=== PATIENT | female | born 1950 | race Caucasian/White ===

== ENCOUNTER 2025-01-07 07:38 | Outpatient (CLI) | payer MEDICARE, SELFPAY ==
--- NOTE | 2025-01-07 09:01 | P.ANES_ITS ---
Anesthesia Charges Start Date/Time Anesthesia Start Date: 01/07/25 Anesthesia Start Time: 08:46 Stop Date/Time Anesthesia Stop Date: 01/07/25 Anesthesia Stop Time: 08:59 Summary Extremes of Age - Over 70 or under 1: BUFF WHEEL FABRICATOR Coding CPT Codes CPT Codes: ANES UPR GI NDSC PX NOS - 23314 ([id number]) P3 - PATIENT W/SEVERE SYS DISEASE, QX - BUFF WHEEL FABRICATOR SVC W/ MD MED DIRECTION, QK - EKG MANAGER 2-4 CNCRNT ANES PROC Additional Codes: Summary - Extremes of Age - Over 70 or under 1: BUFF WHEEL FABRICATOR ([id number])
--- NOTE | 2025-01-07 09:01 | W.ANESCHARGE ---
Anesthesia Charges Start Date/Time Anesthesia Start Date: 01/07/25 Anesthesia Start Time: 08:46 Stop Date/Time Anesthesia Stop Date: 01/07/25 Anesthesia Stop Time: 08:59 Summary Extremes of Age - Over 70 or under 1: JOINTER MACHINE Coding CPT Codes CPT Codes: ANES UPR GI NDSC PX NOS - 52137 ([id number]) P3 - PATIENT W/SEVERE SYS DISEASE, QX - JOINTER MACHINE SVC W/ MD MED DIRECTION, QK - CUSTOMER RELATIONSHIP SPECIALIST 2-4 CNCRNT ANES PROC Additional Codes: Summary - Extremes of Age - Over 70 or under 1: JOINTER MACHINE ([id number])
--- NOTE | 2025-01-07 09:34 | P.ANES_ITS ---
Anesthesia Charges Start Date/Time Anesthesia Start Date: 01/07/25 Anesthesia Start Time: 08:46 Stop Date/Time Anesthesia Stop Date: 01/07/25 Anesthesia Stop Time: 08:59 Summary Extremes of Age - Over 70 or under 1: MDA Coding CPT Codes CPT Codes: ANES UPR GI NDSC PX NOS - 37376 ([id number]) QK - PRODUCT MARKETING SPECIALIST 2-4 CNCRNT ANES PROC, QX - MACHINE BUILDER SVC W/ MD MED DIRECTION, P3 - PATIENT W/SEVERE SYS DISEASE Additional Codes: Summary - Extremes of Age - Over 70 or under 1: MDA ([id number])
== END 2025-01-07 07:39 | disposition home or self-care (01) ==
LOC: OP CLINIC 07:42
PROVIDERS: PCP Family Medicine; Visit Provider Surgery
DX: K44.9 Diaphragmatic hernia without obstruction or gangrene (principal); R10.9 Unspecified abdominal pain
CPT/HCPCS: 00731; 43239; 99100; J2704; J3010

== ENCOUNTER 2025-02-01 10:00 | Outpatient (CLI) | payer MEDICARE, SELFPAY ==
--- NOTE | 2025-02-01 10:15 | CRLHL7_ITS ---
For Patients: As a result of the Century Cures Act, medical imaging exams and procedure reports are released immediately into your electronic medical record. You may view this report before your referring provider. If you have questions, please contact your health care provider. Technique: Double-contrast esophagram performed after the uneventful administration of effervescent crystals and thick barium followed by thin barium. Fluoroscopy time 64 seconds. Indication: Hiatal hernia with GERD Comparison: None. Findings: Postop changes Michael fundoplication. A hernia develops toward the end of the examination measuring 3.5 cm. Some spontaneous reflux noted. Normal passage of a barium tablet through the GE junction. No ulcer. Some tertiary contractions of the distal esophagus noted with delayed transit. Impression: 3.5 cm hiatal hernia. Mild delayed esophageal transit and mild distal esophageal tertiary contractions. No stricture. No achalasia. Dictated by Bhavin Arguelles MD @ 02/01/2025 11:37:26 AM (Electronically Signed)
--- OUTSIDE RECORDS SUMMARY | 2025-02-02 00:25 | XMS_ITS | Clinical Summary ---
Author Organization [facility] Address [address] [place] [address] Care Team Providers Care Asbestos Microscopist Name Role Phone Elsewhere, Pcp Primary Care Provider Unavailabl e Source Comments Patient records contain information from all sites at [facility]. For routine questions regarding patient records, call [phone] during business hours, M-F 8:00 AM - 5:00 PM Central Time. Record requests for emergency care only can be directed to [phone] at any time.[facility] Allergies Active Allergy Reactions Criticality Noted Date Comments Lisinopril Cough 06/11/2009 Cough Penicillins Hives (Reselect Reaction),Rash 08/08 Medications * This document contains information received from the source organization and may not represent a complete record from that organization. multivitamin tablet Take by mouth. 06/01/2007 Active amLODIPine (NORVASC) 10 mg tablet Take 1 tablet (10 mg total) by mouth daily. 90 tablet 3 08/03/2019 Active albuterol (PROVENTIL HFA,VENTOLIN HFA) 90 mcg/actuation inhaler Inhale 2 puffs every 4 (four) hours as needed for wheezing. 18 g 08/03/2019 Active ascorbic acid, vitamin C, (VITAMIN C) 500 mg tablet Take 500 mg by mouth daily. Active omega 1-hao-kys-fish oil 1,000 mg (120 mg-180 mg) capsule Take by mouth. Active melatonin 5 mg tablet Take 5 mg by mouth at bedtime as needed. Active calcium carbonate-vitam in D3 (Calcium 600 with Vitamin D3) 600 mg(1,500mg) -400 unit tablet,chewable Chew 1 tablet daily. Active losartan (COZAAR) 25 mg tablet Take 12.5 mg by mouth daily. Active hydroCHLOROthia zide (HYDRODIURIL) 25 mg tablet Take by mouth daily. 05/31/2022 Active triamcinolone (KENALOG) 0.1 % cream Apply topically. 10/25/2022 Active allopurinoL (ZYLOPRIM) 300 mg tablet Take 300 mg by mouth. 05/31/2022 Active albuterol 2.5 mg /3 mL nebulizer solution Inhale 2.5 mg every 4 (four) hours as needed. 12/02/2023 Active benzonatate (Tessalon) 200 mg capsule Take 1 capsule (200 mg total) by mouth 3 (three) times a day as needed for cough. 20 capsule 09/18/2024 Active Active Problems Problem Noted Date Diagnosed Date Gout 01/15/2020 Chronic Obstructive Pulmonary Disease 09/13/2019 Morbid Severe Obesity Due To Excess Calories Gastric Ulcer Unspecified As Acute Or Chronic Without Hemorrhage Or Perforation 09/19/2018 Overview (08/03/2019): EGD 09/2017 4 cm hiatal hernia with chucho erosion that may be the source of anemia Nicotine Dependence Unspecified 07/10/2013 Hypertension Essential Primary 07/07/2012 Polyp Colon Personal History, Unspecified Type 1 09/16/2010 Overview (08/03/2019): Colonoscopy 07/2011 normal repeat in 5 years Colonoscopy 09/2018 polyp, repeat in 5 years 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 03/10/2011 Immunizations Immunization Administration Dates Next Due HZV (ZOSTAVAX) 07/13/2010 Influenza TIV (IM) 04/28/2020, 8,04/15/2017,2014,06/08/2012 Influenza high dose QV(65 ye ars or older) (PF) 04/27/2021 Influenza, Injectable, Quadrivalent 05/21/2019 Influenza, Quadrivalent, Adj uvanted, Preservative Free 04/28/2020 Influenza, Seasonal, Injectable 06/08/2012 Influenza, Unspecified 05/08/2013 PCV13 07/31/2015 PPSV23 08/24/2016,07/07/2012 RZV (SHINGRIX) 08/28/2018, 9,08/08/2018,2017,06/08/2018 Td, (Adult) Unspecified 05/04/2006 Tdap 07/07/2012 influenza trivalent high dos e (HD)(PF) 04/15/2017,04/25/2016 influenza trivalent vaccine (6 months and older)(PF) 04/28/2020,05/03/2015 influenza vaccine quad (FLUZONE/FLUARIX) (6 months and older)(PF) 05/21/2019,07/12/2014 Social History Tobacco Use Types Packs/Day Years Used Date Smoking Tobacco: Some Days Cigarettes Passive Smoke Exposure: Current Smokeless Tobacco: Never Tobacco Cessation:Ready to Q uit: Not Asked; Counseling Given: Not Answered Comments:rare use Alcohol Use Standard Drinks/Week Comments Not Currently 0 (1 standard drink = 0.6 oz pur e alcohol) very rare Comments No Sex and Gender Information Value Date Recorded Sex Assigned at Not on file Legal Sex Female 4:47 PM UTILITY REPAIRER Gender Identity Not on file Sexual Orientation Not on file Last Filed Vital Signs Vital Sign Reading Time Taken Comments Blood Pressure 149/77 09/18/2024 10:40 AM UTILITY REPAIRER Pulse 81 09/18/2024 10:40 AM UTILITY REPAIRER Temperature 37.3 C (99.1 F) 09/18/2024 10:40 AM UTILITY REPAIRER Respiratory Rate 20 09/18/2024 10:40 AM UTILITY REPAIRER Oxygen Saturation 97% 09/18/2024 10:40 AM UTILITY REPAIRER Inhaled Oxygen Concentration - - Weight 138 kg (303 lb 11.2 oz) 09/18/2024 10:35 AM UTILITY REPAIRER Height 167.6 cm (5' 6) 09/18/2024 10:35 AM UTILITY REPAIRER Body Mass Index 49.02 09/18/2024 10:35 AM UTILITY REPAIRER Plan of Treatment Health Maintenance Due Date Last Done Comments CT Colonography 1950 Cologuard 1950 Hepatitis C Screening 1950 Tobacco Cessation counseling 1950 Colonoscopy 09/18/2023 09/18/2018 Colorectal Cancer Surveillance 09/18/2023 COVID-19 Vaccine ( season) 2024 07/15/2021, 11/07/2020, 10/10/2020 Office Visit for Blood Pressure Check / Re-check 06/17/2024 06/17/2023 Depression Screening (Annual PHQ-2) 08/08/2024 Fall Risk Screen (Annual) 08/08/2024 Mammogram 10/27/2024 10/28/2023, 10/07, 10/25/2022, Additional history exists RSV vaccine - (32-36 weeks) or 60+ years (1 - 1-dose 75+ series) 2024 Creatinine Level (Kidney Function Test) 03/21/2025 03/21/2024, 10/28/2023, 03/09/2023, Additional history exists Potassium Level 03/21/2025 03/21/2024, 10/07, 08/17/2023, Additional history exists Sodium Level 03/21/2025 03/21/2024, 10/07, 10/25/2022, Additional history exists Fasting Glucose for Diabetes Screening 03/21/2027 03/21/2024, 10/28/2023, 10/25/2022, Additional history exists DTaP,Tdap,and Td Vaccines (3 - Td or Tdap) 06/22/2032 06/22/2022, 07/07/2012, 05/04/2006 Zoster Vaccines Completed 08/28/2018, 08/09, 08/08/2018, Additional history exists Bone Density Scan (Osteoporosis Screen) Discontinued 10/14/2020 Pneumococcal vaccine (50+ years) Completed 10/25/2022, 08/24/2016, 07/31/2015, Additional history exists Influenza Vaccine Completed 05/01/2024, , 04/26/2022, Additional history exists IPV Vaccines Aged Out No longer eligi ble based on patient's age to complete this topic Procedures Procedure Name Priority Date/Time Associated Diagnosis Comments COMPREHENSIVE METABOLIC PANEL, S/P STAT 12/07/2021 12:50 PM CDT from Last 3 Months or Most Recently Relevant to Health Maintenance Results * (ABNORMAL) Comprehensive Metabolic Panel (12/07/2021 12:50 PM CDT) Potassium, P 3.9 3.6 - 5.2 mmol/L 12/07/2021 1:20 PM CDT NPRG Sodium, P 137 135 - 145 mmol/L 12/07/2021 1:20 PM CDT NPRG Chloride, P 103 98 - 107 mmol/L 12/07/2021 1:20 PM CDT NPRG Bicarbonate, P 23 22 - 29 mmol/L 12/07/2021 1:20 PM CDT NPRG Anion Gap, P 11 7 - 15 12/07/2021 1:20 PM CDT NPRG BUN (Blood Urea Nitrogen), P 22(H) 6 - 21 mg/dL 12/07/2021 1:20 PM CDT NPRG Creatinine 1.12(H) 0.59 - 1.04 mg/dL 12/07/2021 1:20 PM CDT NPRG eGFR-Black/ 57(L) >=60 mL/min/B SA 12/07/2021 1:20 PM CDT NPRG Comment: ----ADDITIONAL INFORMATION---- Estimated GFR calculated using the 2009 CKD_EPI creatinine equation. eGFR Non-Black/ 49(L) >=60 mL/min/B SA 12/07/2021 1:20 PM CDT NPRG Comment: ----ADDITIONAL INFORMATION---- Estimated GFR calculated using the 2009 CKD_EPI creatinine equation. Calcium, Total, P 11.1(H) 8.8 - 10.2 mg/dL 12/07/2021 1:20 PM CDT NPRG Glucose, P 127 70 - 140 mg/dL 12/07/2021 1:20 PM CDT NPRG Protein, Total, P 7.0 6.3 - 7.9 g/dL 12/07/2021 1:20 PM CDT NPRG Albumin, P 4.2 3.5 - 5.0 g/dL 12/07/2021 1:20 PM CDT NPRG Aspartate Aminotransferase (AST), P SEE COMMENT 8 - 43 U/L 12/07/2021 1:24 PM CDT NPRG Comment:Specimen markedly he molyzed. Alkaline Phosphatase, P 94 35 - 104 U/L 12/07/2021 1:20 PM CDT NPRG Alanine Aminotransferase (ALT), P 22 7 - 45 U/L 12/07/2021 1:20 PM CDT NPRG Bilirubin, Total, P 0.6 <=1.2 mg/dL 12/07/2021 1:20 PM CDT NPRG Blood (Blood, Venous) 12/07/2021 12:50 PM CDT 12/07/2021 1:02 PM CDT us Krystin Fuentes D.O. LAB BLOOD ADD-ON Final Result [facility] [address] [place] [address], [place] NPRG [facility] [address] [place] [address] from Last 3 Months or Most Recently Relevant to Health Maintenance Insurance [facility] Care Teams Asbestos Microscopist Relationship Specialty Start Date End Date Elsewhere, Pcp PCP - General Internal Medicine 12/07/21
--- OUTSIDE RECORDS SUMMARY | 2025-02-02 00:25 | XMS_ITS | Clinical Summary ---
Author Organization [id number] [facility] Address [address] [place] [id number] Care Team Providers Care Train Announcer Name Role Phone Juanjo Trevizo MD Primary Care Provider Baljit Scales MD Unavailable [phone] Allergies Active Allergy Reactions Criticality Noted Date Comments Lisinopril Cough 06/11/2009 Penicillins Hives Medications MULTIVITAMIN TAB Take 1 Tablet by mouth once daily. Contains 0.4 mg of Folic Acid. 0 06/01/20 07 Active VITAMIN C 500 MG TAB take 1 po daily 0 06/01/20 07 Active DIGITAL BP MONITOR CUFF Use to take BP at home as directed 1 0 06/19/20 08 Active omega-3 fatty acids-vitamin E (FISH OIL) 1,000 mg cap Take 1 Capsule by mouth once daily. 0 05/20/20 14 Active NebulizerIndicat ions:Airway obstruction Nebulizer, reuseable neb kit x 1, mask x 1, filters x 1. Freq: daily; Medication: Albuterol Length of need: 99 months 1 Device 04/28/20 18 Active cholecalciferol (VITAMIN D3) 1,000 unit capsule Take 2,000 units by mouth once daily. 0 05/03/20 22 Active triamcinolone (ARISTOCORT; KENALOG) 0.1 % creamIndications :Rash Apply topically to affected area(s) three times daily. Not to exceed two weeks without interruption per episode. 45 g 10/26/19 23 Active albuterol 0.083% (2.5 mg/3 mL) neb solutionIndicati ons:Bronchospasm Inhale 3 mL (2.5 mg) via a nebulizer every 4 hours if needed for Wheezing. 150 mL 2 12/02/19 24 Active albuterol HFA (PRO-AIR; VENTOLIN; PROVENTIL) 90 mcg/actuation inhalerIndicatio ns:COPD mixed type (HC) Inhale 1-2 Puffs by mouth every 4 hours if needed for Shortness of Breath 1st choice. 6.7 g 06/21/20 24 Active CPAPIndications: ALISON (obstructive sleep apnea) RESMED CPAP (E0601) machine for home use at pressure: 4-15cmw, Choice of mask (A7030 or A7034) w/full face cushion (A7031) x1/mo, nasal cushion (A7032) x2/mo, or nasal pillows (A7033) x 2/mo; Length of Need: 99 months; Frequency of use: Daily 1 Each 09/04/19 25 Active allopurinoL 300 mg tabletIndication s:Gout, unspecified cause, unspecified chronicity, unspecified site Take 1 Tablet (300 mg) by mouth once daily. 90 Tablet 3 10/30/19 25 Active amLODIPine 5 mg tabletIndication s:Hypertension, unspecified type Take 1 Tablet (5 mg) by mouth once daily. 90 Tablet 3 10/30/19 25 Active hydroCHLOROthiaz karson 25 mg tabletIndication s:Hypertension, unspecified type Take 1 Tablet (25 mg) by mouth once daily. 90 Tablet 3 10/30/19 25 Active losartan 100 mg tabletIndication s:Hypertension, unspecified type Take 1 Tablet (100 mg) by mouth once daily. 90 Tablet 3 10/30/19 25 Active cephalexin 500 mg capsuleIndicatio ns:Unspecified prophylactic or treatment measure TAKE 4 CAPSULES 1 HOUR BEFORE DENTAL APPOINTMENT 8 Capsule 1 11/15/19 25 Active omeprazole 20 mg tabletIndication s:Dyspepsia Take 1 Tablet (20 mg) by mouth once daily before a meal. 90 Tablet 3 01/23/20 25 Active omeprazole 20 mg tabletIndication s:Dyspepsia Take 1 Tablet (20 mg) by mouth once daily before a meal. 30 Tablet 12/12/19 25 025 Discontin ued(Reord er (E-cancel not sent)) omeprazole 20 mg tabletIndication s:Dyspepsia Take 1 Tablet (20 mg) by mouth once daily before a meal. 30 Tablet 01/08/20 25 025 Discontin ued(Reord er (E-cancel not sent)) Active Problems Problem Noted Date Diagnosed Date Bilateral lower extremity edema 07/18/2024 Hyperparathyroidism, unspecified 08/31/2023 Hiatal hernia 05/19/2022 Overview (06/16/2022): EGD 06/2022 Normal biopsies. Large hernia on EGD. Esophageal dilation to 51Fr Skin cancer 07/13/2021 Overview (09/28/2021): 07/08/2021, RIGHT SUPERIOR NASAL TIP, BCC, nodular type, 09/28/[address] Willson Gout 01/15/2020 COPD mixed type 09/13/2019 Destin ulcer 09/19/2018 Overview (09/19/2018): EGD 09/2017 4 cm hiatal hernia with destin erosion that may be the source of anemia Unspecified essential hypertension 07/07/2012 Personal history of colonic polyps 07/16/2011 Overview (09/19/2018): Colonoscopy 07/2011 normal repeat in 5 years Colonoscopy 09/2018 polyp, repeat in 5 years History of total knee arthroplasty 03/10/2011 Morbid obesity Impaired fasting glucose Dysphagia Gastroesophageal reflux disease Resolved Problems Problem Noted Date Diagnosed Date Resolved Date Tobacco use disorder 07/10/2013 021 Routine general medical exam ination at a health care facility 06/06/2008 07/10/2020 Overview (06/07/2008): Lipids - 06/03/07 - cholesterol - 159, LDL - 85, TG - 103 Dexa- none found mammo-06/02/07 Colon - 05/2006 - due 2010 Pap/pelvic -04/09/05 - nl Thyroid- 05/04/06 - 0.71 Hep B-none found Tetanus-05/04/06 Diabetic-no Elevated BP 07/07/2012 Encounters Date Type Department Care Team Description 01/24/2025 Telephone [facility] [address] [place] [address] 47 Juanjo Trevizo MD Questions (BARIUM Testing ) 01/23/2025 Orders Only [facility] [address] [place] [address] Jaki Castro MD <No scans attached> 01/22/2025 11:45 AM CDT Office Visit [facility] [address] [place] [address] Juanjo Trevizo MD Follow Up (Results from endoscopy ) 01/21/2025 Travel 01/15/2025 Orders Only [facility] [address] [place] [address] Jaki Castro MD 1 scan: (1-Ord) [facility], UPPER GI, 01/07/2025 01/10/2025 Telephone [facility] [address] [place] [address] Jaki Castro MD 01/10/2025 Telephone [facility] [address] [place] [address] Juanjo Trevizo MD Questions (test result ) 01/08/2025 Lab Requisition [facility] [phone] Jaki Castro MD 01/07/2025 Orders Only [facility] Scanner 1 scan: (1-Ord) [facility], UPPER GI, 01/07/2025 01/07/2025 Orders Only [facility] Scanner 1 scan: (1-Ord) [facility], UPPER GI , 01/07/2025 01/07/2025 Telephone [facility] [address] [place] [address] Juanjo Trevizo MD Medication Management (Omeprazole ) 12/26/2024 11:15 AM CDT Office Visit [address] [address] Jaki Castro MD Consult (Gallbladder, referred by Dr Trevizo ) 12/25/2024 10:30 AM CDT Office Visit [address] [place] [address] Juanjo Trevizo MD Follow Up (Medication change and test results) 12/25/2024 Travel 12/23/2024 Travel 12/17/2024 10:30 AM CDT Ancillary Procedure [facility] [address] [facility] [address] [place] [address] 12/17/2024 Travel 12/12/2024 Travel 12/11/2024 11:45 AM CDT Office Visit [facility] [address] [place] [address] Juanjo Trevizo MD Diarrhea (Loose stools, nausea, 12/06/2024 - 12/09/2024, low abdomen discomfort) 12/10/2024 Travel 11/13/2024 Refill [facility] [address] [place] [address] Juanjo Trevizo MD Refill Request (Cephalexin) 11/13/2024 Telephone [facility] [address] [place] [address] Juanjo Trevizo MD Questions (Probiotics) 11/12/2024 Telephone [facility] [address] [place] [address] Juanjo Trevizo MD Form 11/12/2024 Telephone [facility] [address] [place] [address] Dedra Owens MD Form ([facility]) 11/05/2024 Orders Only [facility] [address] [place] [address] Juanjo Trevizo MD Lab 11/05/2024 Orders Only [facility] [address] [place] [address] Juanjo Trevizo MD <No scans attached> from Last 3 Months Immunizations Immunization Administration Dates Next Due COVID-19 vaccine (Moderna 10 0mcg/0.5mL) PF, MDV 11/07/2020,10/10/2020 Influenza Virus, Unspecified 05/08/2013 Influenza, High-dose Inactivated 04/15/2017,04/08 Influenza, High-dose Quadriv alent Inactivated 04/27/2021 Influenza, IIV3 (Age 6-35 mos) 04/28/2020,2014 Influenza, IIV3 (Age >=3 years) 04/28/2020,05/04,06/08/2012 Influenza, IIV4 05/21/2019,07/12/2014 Influenza, IIV4 (=>6mos) MDV 05/21/2019 Influenza, Inactivated AIIV4 (Age 65+ Years) Preserv Free 05/20/2023,04/26/2022 Influenza, Inactivated IIV3 (Age 65+ Years) Preserv Free 05/01/2024,05/03/2018,04/15/2017 Pneumococcal Conj 20-valent (Prevnar 20) 023 Pneumococcal Poly,23-Valent (Pneumovax) 08/24/19 17,07/07/2012 Pneumococcal conj 13-Valent (Prevnar 13) 015 TD, UNSPECIFIED 05/04/2006 Td (Age >=7 Years) 05/04/2006 Tdap 06/22/2022,07/07/2012 Zoster (Shingrix-RZV, recombinant) 08/28/2018,,06/16/2018 Zoster (Zostavax-ZVL, live) 07/13/2010 Family History Medical History Relation Name Comments Cancer-colon Brother 1 Cancer-prostate Brother 2 at 79 Arthritis Father Cancer-prostate Father Heart Disease Father 2000, of [place] age 81 Anesthesia Problem Neg. Cancer-breast No Family History Cancer-ovarian No Family History Relation Name Status Comments Brother 1 Brother 2 Alive Father Mother Neg. Social History Tobacco Use Types Packs/Day Years Used Date Smoking Tobacco: Former Cigarettes 0 04/24/1991 - 04/24/2022 Smokeless Tobacco: Never Tobacco Cessation:Counseling Given: No Passive Exposure Comments:2 cigarettes a month. Alcohol Use Standard Drinks/Week Comments Yes 0 (1 standard drink = 0.6 oz pur e alcohol) rare PHQ-2 Answer Date Recorded PHQ-2 TOTAL SCORE 0 10/29/2024 Social Connections Answer Date Recorded Do you often feel lonely or isolated from those around you? 0 10/24/2024 Financial Resource Strain Answer Date R ecorded Difficulty of Paying Living Expenses 3 10/24/2024 Difficulty of Paying Living Expenses Not on file 10/24/2024 Food Insecurity Answer Date Recorded Do you worry your food will run out before you are able to buy more? 1 10/24/2024 Transportation Needs Answer Date Record ed Does lack of transportation keep you from medica l appointments? 1 10/24/2024 Does lack of transportation keep you from work, meetings or getting things that you need? 1 10/24/2024 Housing Stability Answer Date Recorded What is your housing situation today? 1 10/24/2024 Utilities Answer Date Recorded Do you have trouble paying f or utilities (for example, heat, electricity, water, phone)? 1 10/24/2024 Comments No Sex and Gender Information Value Date Recorded Sex Assigned at Not on file Legal Sex Female 6:31 AM PEACE OFF[employer]ER Gender Identity Not on file Sexual Orientation Not on file Occupation Industry Job Start Date Job End Date Not on file Not on file Not on file Not on file Obstetrics History Para Term AB IAB SAB Ectopic Multiple Livin g Live Births 3 3 3 0 0 0 0 0 0 0 0 Date Outcome GA Total Labor Labor/2nd/3rd Weight Sex Type Anes PTL Yenny A1 A5 Name Clin Term Term Term Last Filed Vital Signs Vital Sign Reading Time Taken Comments Blood Pressure 128/79 01/22/2025 11:55 AM CDT Pulse 74 01/22/2025 11:55 AM CDT Temperature 36.3 C (97.3 F) 08/31/2023 11:44 AM PEACE OFF[employer]ER Respiratory Rate 18 08/31/2023 11:4 4 AM PEACE OFFICER Oxygen Saturation 97% 01/22/2025 11: 55 AM CDT Inhaled Oxygen Concentration - - Weight 139.3 kg (307 lb 3.2 oz) 025 11:55 AM CDT Height 164.2 cm (5' 4.65) 10/29/2024 1 0:06 AM CDT Body Mass Index 51.68 10/29/2024 10:06 AM CDT Plan of Treatment Health Maintenance Due Date Last Done Comments Colonoscopy through age 75 09/18/202309/18, 09/18/2018, 09/18/2018, Additional history exists COVID-19 vaccine series ( season) 2024 07/15/2021, 11/07/2020, 10/10/2020 RSV vaccine for adults or (1 - 1-dose 75+ series) 2024 BMI (ht and wt on same day) for age 18+ 10/29/2025 10/29/2024, 09/04/2024, 10/28/2023, Additional history exists Depression screening for age 12+ 10/29/2025 10/29/2024, 10/28/2023, 10/28/2023, Additional history exists Medicare Wellness for age 65+ 10/30/2025 10/29/2024, 10/28/2023, 10/25/2022, Additional history exists Fecal testing non-DNA (FIT,FOBT,iFOBT) for age 45-75 11/01/2025 11/01/2024, 11/01/2023, 09/15/2017, Additional history exists Lipids for age 45-75 10/27/2028 10/28/2023, 10/14/2020, 09/13/2019, Additional history exists Tetanus booster 06/22/2032 06/22/2022, 06/10, 05/04/2006, Additional history exists Hepatitis C screening for age 18-79 Completed 07/12/2014 Zoster (shingles) series for age 50+ Completed 08/28/2018, 08/08/2018, 06/16/2018, Additional history exists Tdap Completed 06/22/2022, 07/07/2012 Pneumococcal series for age 50+ Completed 10/25/2022, 08/24/2016, 07/31/2015, Additional history exists DEXA/DXA scan for age 65+ Completed 2022, 10/14/2020, 08/05/2015 Influenza Vaccine Completed 05/01/2024, , 04/26/2022, Additional history exists Hepatitis B series for 19+ Aged Out N o longer eligible based on patient's age to complete this topic Procedures Procedure Name Priority Date/Time Associated Diagnosis Comments AMB CONSULT TO GASTROENTEROLOGY Routine 01/28/2025 7:24 PM CDT Chronic GERD Early satiety LAB TRACKING EVENT Routine 01/07/2025 8:50 AM CDT PATH TISSUE EXAM Routine 01/07/2025 8:50 AM CDT ESOPHAGOGASTRODUODENOSCOPY Routine 01/07 12:00 AM CDT Gallstones SCAN-ENDOSCOPY 01/07/2025 12:00 AM CDT SCAN-ENDOSCOPY 01/07/2025 12:00 AM CDT US ABDOMEN LIMITED RUQ Routine 10:39 AM CDT Dyspepsia OCCULT BLOOD IFOBT STOOL Routine 025 12:00 PM CDT Screening for colon cancer LIPID PANEL W REFLEX MEASURE D LDL Routine 10/28/2023 10:38 AM CDT Lipid screening XR DXA BONE DENSITY 2 SITES AXIAL AND 1 SITE PERIPHERAL Routine 03/17/2023 11:00 AM CDT Hyperparathyroi dism (HC) SCAN-COLONOSCOPY 09/18/2018 12:00 AM PEACE OFFICER ANTI HCV Routine 07/12/2014 9:03 AM PEACE OFFICER Need for hepatitis C screening test from Last 3 Months or Most Recently Relevant to Health Maintenance Results * LAB TRACKING EVENT (01/07/2025 8:50 AM CDT) Other (Other) Client Collect / Unknown 01/07/2025 8:50 AM CDT 01/08/2025 9:05 AM CDT us Jaki Castro MD LAB BILL ONLY Final Re sult [facility] [address] [place] [address], [place] * PATH TISSUE EXAM (01/07/2025 8:50 AM CDT) Case Report Pathology Report Case: [id number] Authorizing Provider: Jaki Castro MD Collected: 01/07/2025 0850 Ordering Location: [facility] Received: 01/08/2025 0942 Pathologist: Musa Watkins IV, MD Specimens: A) - Duodenum Biopsy B) - Stomach Biopsy 01/09/2025 10:33 AM CDT [facility] Final Diagnosis A) DUODENUM, BIOPSY: 1. Normal duodenal mucosa 2. Negative for celiac disease and other enteropathy B) STOMACH, BIOPSY: 1. Non-erosive reactive gastropathy (see comment) a. Sampling: Antral and body mucosae b. Distribution: Antral mucosa 2. Negative for inflammation, atrophy and Helicobacter 01/09/2025 10:33 AM CDT [facility] at 1033 CDT Comment B) The likely etiology is an ongoing non-inflammatory type mucosal injury due to a chemical type of injury; this may be due to ingestion of non-steroidal anti-inflammator y drugs, aspirin (via prostaglandin-me diated injury), excess alcohol, corticosteroids, or bile/alkaline reflux, the latter usually in the setting of a gastroenteric anastomosis. 01/09/2025 10:33 AM CDT [facility] Clinical Information Ms. Cannon is a 74 y.o. who presents with new onset abdominal symptoms. EGD findings include: - Large hiatus hernia - Large amount of food in the stomach - Normal duodenum 01/09/2025 10:33 AM CDT [facility] Gross Description A) Received in formalin are 5 whitaker mucosal fragments ranging from 1 mm to 4 mm in greatest dimension, which are entirely submitted in one cassette. It is labeled with the patient's name and designated duodenum. B) Received in formalin are 6 whitaker mucosal fragments ranging from 3 mm to 5 mm in greatest dimension, which are entirely submitted in one cassette. It is labeled with the patient's name and designated stomach random. Shraddha Morse CNA 01/08/2025 1:26 PM 01/09/2025 10:33 AM CDT [facility] Microscopic Description The final diagnosis is based on microscopic examination of appropriate sections of all specimens. 01/09/2025 10:33 AM CDT [facility] Additional Information Interpreted at [facility] - [address], [place] [address] 01/09/2025 10:33 AM CDT [facility] Other (Duodenum Biopsy) 01/07/2025 8:50 AM CDT 01/08/2025 9:42 AM CDT Specimen (specimen) (Stomach Biopsy) 01/07/2025 8:50 AM CDT 01/08/2025 9:42 AM CDT us Jaki Castro MD PATHOLOGY/CYTOLOGY Final Result [facility] [address] [place] [address], [place] * SCAN-ENDOSCOPY (01/07/2025 12:00 AM CDT) us Scanner OTHER Final Result * SCAN-ENDOSCOPY (01/07/2025 12:00 AM CDT) us Scanner OTHER Final Result * ESOPHAGOGASTRODUODENOSCOPY (01/07/2025 12:00 AM CDT) us Jaki Castro MD GI PROCEDURE ORD Final R esult * US ABDOMEN LIMITED RUQ (12/17/2024 10:39 AM CDT) Anatomical Region Laterality Modality Abdomen, LIVER Ultrasound 12/18/2024 11:2 0 AM CDT Impressions 12/18/2024 11:20 AM CDT 1. Cholelithiasis without sonographic evidence of acute cholecystitis. 2. Hepatic steatosis without focal hepatic lesions. Dictated by Rakesh Lombardi MD @ 12/18/2024 11:20:51 AM (Electronically Signed) Narrative 12/18/2024 11:20 AM CDT For Patients: As a result of the Cures Act, medical imaging exams and procedure reports are released immediately into your electronic medical record. You may view this report before your referring provider. If you have questions, please contact your health care provider. INDICATION: Dyspepsia COMPARISON: None TECHNIQUE: Ultrasound abdomen, limited, utilizing grayscale and color Doppler FINDINGS: Liver: The liver is normal in size and demonstrates diffusely increased echogenicity consistent with steatosis. No focal liver lesions identified. Gallbladder: Multiple mobile gallstones. No sludge. No wall thickening or pericholecystic fluid. Negative sonographic Callejas sign. Bile ducts: The common bile duct measures 3 mm in diameter. Pancreas: Normal where seen. Right kidney: The right kidney measures 9.3 cm in length. No hydronephrosis, calculus, or mass. Vascular: Normal caliber abdominal aorta. The IVC appears patent. Procedure Note Rakesh Lombardi MD - 12/18/2024 For Patients: As a result of the Cures Act, medical imagingexams and procedure reports are released immediately into your electronicmedical record. You may view this report before your referring provider.If you have questions, please contact your health care provider. INDICATION: Dyspepsia COMPARISON: None TECHNIQUE: Ultrasound abdomen, limited, utilizing grayscale and color Doppler FINDINGS: Liver: The liver is normal in size and demonstrates diffusely increasedechogenicity consistent with steatosis. No focal liver lesionsidentified. Gallbladder: Multiple mobile gallstones. No sludge. No wall thickening orpericholecystic fluid. Negative sonographic Callejas sign. Bile ducts: The common bile duct measures 3 mm in diameter. Pancreas: Normal where seen. Right kidney: The right kidney measures 9.3 cm in length. Nohydronephrosis, calculus, or mass. Vascular: Normal caliber abdominal aorta. The IVC appears patent. IMPRESSION: 1. Cholelithiasis without sonographic evidence of acute cholecystitis. 2. Hepatic steatosis without focal hepatic lesions. Dictated by Rakesh Lombardi MD @ 12/18/2024 11:20:51 AM (Electronically Signed) Juanjo Trevizo MD Final Result * OCCULT BLOOD IFOBT STOOL (11/01/2024 12:00 PM CDT) STOOL BLOOD ,IFOBT Negative Negative 11/05/2024 10:26 PM CDT [facility] Stool STOOL SPECIMEN / Unknown Non-Blood / Unknown 11/01/2024 12:00 PM CDT 11/05/2024 9:26 PM CDT us Juanjo Trevizo MD LABORATORY Final Result [facility] [address] [place] [address], * LIPID PANEL W REFLEX MEASURED LDL (10/28/2023 10:38 AM CDT) CHOLESTEROL,TOTAL 160 100 - 199 mg/dL 10/28/2023 5:01 PM CDT [facility] Comment: Cholesterol, Total Reference Ranges Desirable <200 mg/dL Borderline 200-239 mg/dL High >=240 mg/dL TRIGLYCERIDES 76 <150 mg/dL 10/28/2023 5:01 PM CDT [facility] HDL CHOLESTEROL 55 >40 mg/dL 5:01 PM CDT [facility] NON-HDL CHOLESTEROL 105 <145 mg/dl 10/28/2023 5:01 PM CDT [facility] CHOL/HDL RATIO 2.91 <4.50 10/28/2023 5:01 PM CDT [facility] LDL CHOLESTEROL 90 <=130 mg/dL 10/28/2023 5:01 PM CDT [facility] VLDL CHOLESTEROL 15 <=30 mg/dL 10/28/2023 5:01 PM CDT [facility] PROVIDER ORDERED STATUS RANDOM 10/28/2023 5:01 PM CDT [facility] Blood BLOOD SPECIMEN / Unknown Venipuncture / Unknown 10/28/2023 10:38 AM CDT 10/28/2023 10:39 AM CDT us Juanjo Trevizo MD CHEMISTRY Final Result [facility] [address] [place] [address], * (ABNORMAL) XR DXA BONE DENSITY 2 SITES AXIAL AND 1 SITE PERIPHERAL (03/17/2023 11:00 AM CDT) Anatomical Region Laterality Modality LUMBAR SPINE Other Impressions 03/22/2023 12:28 PM CDT Osteopenia. RECOMMENDATIONS: The National Osteoporosis Foundation recommends pharmacologic treatment for patients with T-scores of -2.5 or less, patients with prior history of fragility fractures, or patients with 10-year probability of greater than 3% at hips or greater than 20% of suffering major osteoporotic fractures. Recommend continued optimization of calcium and vitamin D intake through dietary means and/or supplementation and regular exercise. Repeat scan recommended in 3-5 years. Leonor Coyle PA-C [facility] 03/22/2023 Narrative 03/22/2023 12:28 PM CDT For Patients: Results are automatically released to your [facility] ([facility]) account once available, in compliance with federal regulations. This means that you may see your results before your provider has had a chance to review them. Please allow 2-3 business days for your provider to comment on the results. XR DXA Bone Mineral Density (BMD) EXAM LOCATION: [address] [address] PATIENT NAME: Daylin Cannon DATE OF : 1950 EXAM DATE: 03/17/2023 REQUESTING PROVIDER: Kathia Carr NP GENDER AT : female HEIGHT: 5' 4.75 (03/09/2023) WEIGHT: 276 lb 14.4 oz (03/09/2023) MENOPAUSAL STATUS: Postmenopausal RACE/ETHNICITY: White RISK FACTORS: Height Loss (2 inches or more), Hyperparathyroidism, Smoking (current), and White Race CURRENT MEDICATION FOR BONE LOSS: NONE INDICATION: Screening for osteoporosis and Post-Menopause COMPARISON DATE(S): 2020 DXA scans are compared to prior studies for a patient only when the two (or more) studies were performed on the same scanner. It is not possible to compare data generated on one scanner to data from another because there are not standards in DXA equipment. This applies even if the two scanners are made by the same medical biller. PROCEDURE: Dual-energy x-ray absorptiometry performed with routine technique. Reporting is completed in the form of a T-score. The T-score represents the standard deviation from peak bone mass based on young healthy adult. A Z-score is used for diagnosis in premenopausal women, and for men under the age of 50. FINDINGS: RESULT LUMBAR SPINE L1 - L4 BMD: 1.277 g/cm2 T-Score: + 0.7 Z-Score: + 1.2 Change from prior in 2020: Decrease 0.5%. RESULTS FEMUR Left femoral neck BMD: 0.886 g/cm2 T-Score: - 1.1 Z-Score: + 0.0 Change from prior in 2020: Decrease 5.3%. Right femoral neck BMD: 0.923 g/cm2 T-Score: - 0.8 Z-Score: + 0.3 Change from prior in 2020: Decrease 1.3%. Left hip BMD: 1.031 g/cm2 T-Score: + 0.2 Z-Score: + 1.0 Change from prior in 2020: Decrease 7.3%. Right hip BMD: 1.065 g/cm2 T-Score: + 0.5 Z-Score: + 1.3 Change from prior in 2020: Decrease 5.2%. WHO criteria: Normal: T-score at or above -1 SD Osteopenia: T-score between -1.1 and -2.4 SD Osteoporosis: T-score at or below -2.5 SD FRAX RISK CALCULATION (USED FOR OSTEOPENIA ONLY): 10-year probability of major osteoporotic fracture: 8.2%. 10-year probability of hip fracture: 1.7%. us Kathia Carr NP DEXA Final Resul t * SCAN-COLONOSCOPY (09/18/2018 12:00 AM PEACE OFFICER) us Scanner OTHER Final Result * ANTI HCV [[id number]] (07/12/2014 9:03 AM PEACE OFFICER) HEPATITIS C ANTIBODY Non-Reacti ve Non-Reacti ve 07/12/2014 4:39 PM PEACE OFFICER [facility] Blood specimen (specimen) BLOOD SPECIMEN / Unknown Venipuncture / Unknown 07/12/2014 9:03 AM PEACE OFFICER 07/12/2014 9:04 AM PEACE OFFICER Narrative [facility] - 07/12/2014 4:39 PM PEACE OFFICER Antibodies to HCV not detected; does not exclude the possibility of exposure to HCV. Juanjo Trevizo MD SEND OUTS Final Result [facility] [address] [place] [address], [place] from Last 3 Months or Most Recently Relevant to Health Maintenance Insurance [employer] MEDICARE ADVANTAGE MEDICARE PART A HB ONLY MEDICARE PART B HB ONLY [employer] MED[employer]ARE ADVANTAGE [employer] WORK[employer] COMP Member Subscriber Plan / Payer (Ef fective for All Dates) Name:Daylin Cannon Relation to Subscriber:Self Name:RajendraDawson farrangelina Chavarria Payer ID:Not on file Group ID:Not on file Type:Not on file [id number] Address: [address] [address] [place] [address] Advance Directives Documents on File Type Date Recorded Patient Stadium Attendant Expl anation Healthcare Directive 08/26/2017 9:13 AM MAIKOL, 12/14/10 * Full Code (Latest Code Status on File) Date Activated Date Inactivated Comments 08/31/2023 6:21 AM 08/31/2023 2:12 PM Question Answer Comments Code Status Discussion: Discussed * Full Code Date Activated Date Inactivated Comments 08/25/2022 9:53 AM 08/25/2022 6:01 PM Question Answer Comments Code Status Discussion: Reviewed Preferences * Full Code Date Activated Date Inactivated Comments 06/15/2022 7:39 AM 06/15/2022 11:34 AM Question Answer Comments Code Status Discussion: Reviewed Preferences Care Teams Train Announcer Relationship Specialty Start Date End Date Juanjo Trevizo MD [address] [place] [address] PCP - General 04/15/06 Baljit Scales MD [address] [facility] [address] [place] [address] Surgery - General 08/24/22
== END 2025-02-01 10:01 | disposition home or self-care (01) ==
LOC: RAD 10:01
PROVIDERS: PCP Family Medicine; Visit Provider Surgery
DX: K44.9 Diaphragmatic hernia without obstruction or gangrene (principal); K21.9 Gastro-esophageal reflux disease without esophagitis
CPT/HCPCS: 74221

== ENCOUNTER 2025-04-09 09:44 | Outpatient (CLI) | payer MEDICARE, SELFPAY ==
--- NOTE | 2025-04-09 10:00 | CRLHL7_ITS ---
For Patients: As a result of the Century Cures Act, medical imaging exams and procedure reports are released immediately into your electronic medical record. You may view this report before your referring provider. If you have questions, please contact your health care provider. INDICATION: Nausea. Reflux. Evaluate for gastroparesis. TECHNIQUE: 910 microcuries of Tc-99m labeled filtered Sulfur Colloid mixed in with a predetermined meal (1 egg, toast with jelly, and 2 ounces of juice, ingested ovary 7 minute period of time). Imaging performed up to hours. (Please note, the gastric emptying calculations initially were very likely erroneous given the appearance of the acquired spot images and were therefore recalculated). FINDINGS: Scintigraphic evidence for borderline normal gastric emptying. Specifically the recalculated data is as follows: 0 minutes: 100 percent of activity remains. 30 minutes: 78 percent of activity remains. 60 minutes: 68 percent of activity remains. 90 minutes: 51 percent of activity remains. 120 minutes: 39 percent of activity remains. 240 minutes: 4 percent of activity remains. At 120 minutes there should be less than 40 percent of activity remaining in the stomach with this patient demonstrating 39 percent of activity remaining. IMPRESSION: Scintigraphic evidence for borderline normal gastric emptying. Dictated by Daryl Everett MD @ 04/11/2025 9:14:06 AM (Electronically Signed)
== END 2025-04-09 09:45 | disposition home or self-care (01) ==
LOC: NM 09:44
PROVIDERS: PCP Family Medicine; Visit Provider Physician Assistant
DX: R11.0 Nausea (principal); K21.9 Gastro-esophageal reflux disease without esophagitis; Z98.890 Other specified postprocedural states
CPT/HCPCS: 78264; A9541